=== PATIENT | male | born 1985 | race Caucasian/White ===

== ENCOUNTER 2020-09-27 03:31 | Emergency (ER) | payer OTHER ==
[2020-09-27] MEDS ORDERED: Sodium Chloride 0.9% 1,000 ML IV ONE (03:58)
[2020-09-27] MEDS ORDERED: Ondansetron 4 MG/2 ML SDV IV ONE (03:58)
[2020-09-27] MEDS ORDERED: diphenhydrAMINE 50 MG/ML SDV IVPUSH ONE (03:58)
--- NOTE | 2020-09-27 04:10 | EDM.PDOC ---
ED HPI GENERAL MEDICAL PROBLEM - General Chief Complaint: General Stated Complaint: FEELING FAINT, NAUSEA Time Seen by Provider: 09/27/20 03:45 Source of Information: Reports: Patient, RN, RN Notes Reviewed History Limitations: Reports: No Limitations - History of Present Illness INITIAL COMMENTS - FREE TEXT/NARRATIVE: Pt is a 35 year old male who presents to ER with c/o feeling faint/dizzy and nauseated. 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 He states he began feeling a tightness in the head and neck. Upon arrival to the ER, pt c/o headache, dizziness, and nausea. Patient denies any recent illness, denies past medical history. Denies vomiting or diarrhea, fever or chills, chest pains or SOB. Onset: Today, Sudden - Related Data Allergies Allergy/AdvReac Type Severity Reaction Status Date / Time No Known Allergies Allergy Verified 09/27/20 03:55 Home Meds: Home Meds . [No Known Home Meds] 10/31/13 [History] Past Medical History - Past Health History Medical/Surgical History: Denies Medical/Surgical History Social & Family History - Family History Family Medical History: No Pertinent Family History - Tobacco Use Tobacco Use Status *Q: Never Tobacco User Second Hand Smoke Exposure: No - Caffeine Use Caffeine Use: Reports: Energy Drinks - Recreational Drug Use Recreational Drug Use: No - Living Situation & Occupation Occupation: Employed ED ROS GENERAL - Review of Systems Review Of Systems: Comprehensive ROS is negative, except as noted in HPI. ED EXAM, GENERAL - Physical Exam Exam: See Below Exam Limited By: No Limitations General Appearance: Alert, WD/WN, Anxious, Mild Distress Eye Exam: Bilateral Eye: EOMI, Normal Inspection Ears: Normal External Exam, Hearing Grossly Normal Nose: Normal Inspection Throat/Mouth: Normal Inspection, Normal Voice, No Airway Compromise Head: Atraumatic, Normocephalic Neck: Normal Inspection, Supple, Non-Tender, Full Range of Motion, Other (No Nuchal Rigidity) Respiratory/Chest: No Respiratory Distress, Lungs Clear, Normal Breath Sounds, No Accessory Muscle Use, Chest Non-Tender Cardiovascular: Normal Peripheral Pulses, Regular Rate, Rhythm, No Edema, No Gallop, No JVD, No Murmur, No Rub Peripheral Pulses: 2+: Radial (L), Radial (R) GI/Abdominal: Normal Bowel Sounds, Soft, Non-Tender (Male) Exam: Deferred Rectal (Males) Exam: Deferred Back Exam: Normal Inspection, Full Range of Motion, NT Extremities: Normal Inspection, Normal Range of Motion, Non-Tender, Normal Capillary Refill, No Pedal Edema Neurological: Alert, Oriented, CN II-XII Intact, Normal Cognition, Normal Gait, Normal Reflexes, No Motor/Sensory Deficits Psychiatric: Normal Affect, Normal Mood, Anxious Skin Exam: Warm, Dry, Intact, Normal Color, No Rash, Other (ears red and warm) Lymphatic: No Adenopathy #1 Interpretation EKG Date: 09/27/20 Time: 04:04 Rhythm: NSR Rate (Beats/Min): 84 [place]: Normal P-Wave: Present QRS: Normal ST-T: Normal QT: Normal Comparison: NA - No Prior EKG Course - Vital Signs Last Recorded V/S: Last Vital Signs Temp 98.7 F 09/27/20 03:38 Pulse 97 09/27/20 03:38 Resp 19 09/27/20 03:38 BP 142/94 H 09/27/20 03:38 Pulse Ox 99 09/27/20 03:38 - Orders/Labs/Meds Orders: Active Orders 24 hr Category Date Time Status EKG Documentation Completion [RC] STAT Care 09/27/20 03:56 Active Labs: Laboratory Tests 09/27/20 09/27/20 09/27/20 Range/Units 04:00 04:00 04:00 WBC 13.6 H (5.0-10.0) 10^3/uL RBC 5.07 (4.6-6.2) 10^6/uL Hgb 15.1 (14.0-18.0) g/dL Hct 44.9 (40.0-54.0) % MCV 88.6 (80-100) fL MCH 29.8 (27.0-34.0) pg MCHC 33.6 (33.0-35.0) g/dL Plt Count 269 (150-450) 10^3/uL Neut % (Auto) 79.6 H (42.2-75.2) % Lymph % (Auto) 13.0 L (20.5-50.1) % [place] % (Auto) 5.7 (2-8) % Eos % (Auto) 1.0 (1.0-3.0) % Baso % (Auto) 0.7 (0.0-1.0) % Sodium 140 (136-145) mmol/L Potassium 3.2 L (3.5-5.1) mmol/L Chloride 100 (98-107) mmol/L Carbon Dioxide 28 (21-32) mmol/L Anion Gap 15.2 H (7-13) mEq/L BUN 12 (7-18) mg/dL Creatinine 1.10 (0.70-1.30) mg/dL Est Cr Clr Drug Dosing 107.95 mL/min Estimated GFR (MDRD) > 60 BUN/Creatinine Ratio 10.9 (No establ ref range) Glucose 109 H (70-99) mg/dL Calcium 8.9 (8.5-10.1) mg/dL Magnesium 2.2 (1.8-2.4) mg/dL Total Bilirubin 0.5 (0.2-1.0) mg/dL AST 26 (15-37) U/L ALT 74 H (16-63) U/L Alkaline Phosphatase 59 (46-116) U/L Troponin I < 0.017 (0.000-0.056) ng/mL Total Protein 8.2 (6.4-8.2) g/dL Albumin 4.5 (3.4-5.0) g/dL Globulin 3.7 Albumin/Globulin Ratio 1.2 Urine Color Yellow (YELLOW) Urine Appearance Clear (CLEAR) Urine pH 6.5 (5.0-9.0) Ur Specific [place] 1.010 (1.005-1.030) Urine Protein Negative (NEGATIVE) Urine Glucose (UA) Negative (NEGATIVE) Urine Ketones Negative (NEGATIVE) Urine Occult Blood Negative (NEGATIVE) Urine Nitrite Negative (NEGATIVE) Urine Bilirubin Negative (NEGATIVE) Urine Urobilinogen 0.2 (0.2-1.0) mg/dL Ur Leukocyte Esterase Negative (NEGATIVE) Meds: Medications Discontinued Medications Generic Name Dose Route Start Last Admin Trade Name Freq PRN Reason Stop Dose Admin Acetaminophen 650 mg 09/27/20 04:59 09/27/20 05:07 Acetaminophen 325 Mg Tab PO 09/27/20 05:00 650 mg NOW ONE Administration Diphenhydramine HCl 25 mg 09/27/20 03:58 09/27/20 04:13 Diphenhydramine 50 Mg/Ml Sdv IVPUSH 09/27/20 03:59 25 mg ONETIME ONE Administration Sodium Chloride 1,000 mls @ 999 mls/hr 09/27/20 03:58 09/27/20 04:14 Normal Saline IV 09/27/20 04:58 999 mls/hr .BOLUS ONE Administration Ondansetron HCl 4 mg 09/27/20 03:58 09/27/20 04:11 Ondansetron 4 Mg/2 Ml Sdv IV 09/27/20 03:59 4 mg ONETIME ONE Administration Departure - Departure Time of Disposition: 05:29 Disposition: Home, Self-Care 01 Condition: Good Clinical Impression: Dizziness Headache Qualifiers: Headache type: unspecified Headache chronicity pattern: unspecified pattern Intractability: not intractable Qualified Code(s): R51.9 - Headache, unspecified - Discharge Information *PRESCRIPTION DRUG MONITORING PROGRAM REVIEWED*: No *COPY OF PRESCRIPTION DRUG MONITORING REPORT IN PATIENT JARED: No Instructions: Dizziness, [id number], General Headache Without Cause, [id number] Forms: ED Department Discharge Additional Instructions: Monitor Blood pressure May use Tylenol and/or Ibuprofen as directed for pain/fever Follow up with your primary care facility next week Rest Drink plenty of fluids Return to the ER with any worsening of problems Sepsis Event Note (ED) - Evaluation Sepsis Screening Result: No Definite Risk - Focused Exam Vital Signs: Vital Signs Temp Pulse Resp BP Pulse Ox 09/27/20 03:38 98.7 F 97 19 142/94 H 99 - My Orders Last 24 Hours: My Active Orders 09/27/20 03:56 EKG Documentation Completion [RC] STAT - Assessment/Plan Last 24 Hours: My Active Orders 09/27/20 03:56 EKG Documentation Completion [RC] STAT
[2020-09-27 04:29] LABS: ANION GAP 15.2 mEq/L (7-13); CHLORIDE,CL 100 mmol/L (98-107); SODIUM,NA 140 mmol/L (136-145)
[2020-09-27] MEDS ORDERED: Acetaminophen 325 MG Tab PO ONE (04:59)
--- NOTE | 2020-09-27 05:18 | CR ---
PROCEDURE INFORMATION: Exam: XR Chest Exam date and time: 09/27/2020 4:51 AM Age: 35 years old Clinical indication: Other: Chest pain TECHNIQUE: Imaging protocol: XR of the chest. Views: 1 view. COMPARISON: No relevant prior studies available. FINDINGS: Lungs: The lungs are adequately inflated. No consolidation. Pleural spaces: No pleural effusion or pneumothorax. Heart/Mediastinum: Cardiac silhouette size is normal. Vasculature: Left hilar opacity could represent overlapping vascular structures. Bones/joints: No acute osseous abnormalities. IMPRESSION: Left hilar opacity likely represents overlying vascular structures. Consider repeat formal PA/LAT radiographs for confirmation. Otherwise, no acute findings.
== END 2020-09-27 05:42 | disposition home or self-care (01) ==
LOC: DL.ED 03:31
DX: R42 Dizziness and giddiness (principal); R51.9 Headache, unspecified
CPT/HCPCS: 36415; 71045; 80053; 81003; 83735; 84484; 85025; 93005; 93010; 96374; 96375; 99284; 99284-25; A9270-GY; J1200; J2405; J7030

== ENCOUNTER 2020-09-30 02:06 | Emergency (ER) | payer OTHER ==
[2020-09-30] MEDS ORDERED: Meclizine 12.5 MG Tab PO ONE (02:39)
[2020-09-30 03:13] LABS: ANION GAP 14.6 mEq/L (7-13); CHLORIDE,CL 101 mmol/L (98-107); SODIUM,NA 138 mmol/L (136-145)
--- NOTE | 2020-09-30 04:06 | EDM.PDOC ---
ED HPI GENERAL MEDICAL PROBLEM - General Chief Complaint: General Stated Complaint: DIZZY, NAUSEA Time Seen by Provider: 09/30/20 02:20 Source of Information: Reports: Patient History Limitations: Reports: No Limitations - History of Present Illness INITIAL COMMENTS - FREE TEXT/NARRATIVE: ED ambulatory. C/o intermittent feeling of dizziness, Notices more with rapid position change or movement of head, Describes feeling that head is congested. Was seen durning weekend with similar sx. Nauseated at that time. Tolerating fluids now. No injury, No fever or chills. no diarrhea. No cough. In area for [employer]. Reports working " night" shift, normal routine is daytime hours. - Related Data Allergies Allergy/AdvReac Type Severity Reaction Status Date / Time No Known Allergies Allergy Verified 09/30/20 02:15 Home Meds: Home Meds . [No Known Home Meds] 10/31/13 [History] Past Medical History - Past Health History Medical/Surgical History: Denies Medical/Surgical History Social & Family History - Family History Family Medical History: No Pertinent Family History - Tobacco Use Tobacco Use Status *Q: Former Tobacco User Used Tobacco, but Quit: Yes Month/Year Tobacco Last Used: 2010 - Caffeine Use Caffeine Use: Reports: Energy Drinks - Recreational Drug Use Recreational Drug Use: No - Living Situation & Occupation Occupation: Employed ED ROS GENERAL - Review of Systems Review Of Systems: Comprehensive ROS is negative, except as noted in HPI. ED EXAM, GENERAL - Physical Exam Exam: See Below Exam Limited By: No Limitations General Appearance: Alert, No Apparent Distress Eye Exam: Bilateral Eye: EOMI, PERRL Ears: Normal External Exam, Hearing Grossly Normal Nose: Normal Inspection Throat/Mouth: Normal Inspection Head: Atraumatic, Normocephalic Neck: Normal Inspection Respiratory/Chest: No Respiratory Distress Cardiovascular: Normal Peripheral Pulses, Regular Rate, Rhythm GI/Abdominal: Normal Bowel Sounds, Soft, Non-Tender Extremities: Normal Inspection, Normal Range of Motion Neurological: Alert, Oriented, Normal Cognition, Normal Gait, Normal Reflexes, No Motor/Sensory Deficits Psychiatric: Normal Affect, Normal Mood Skin Exam: Warm, Dry, Intact Course - Vital Signs Last Recorded V/S: Last Vital Signs Temp 98.2 F 09/30/20 02:16 Pulse 84 09/30/20 02:16 Resp 18 09/30/20 02:16 BP 169/90 H 09/30/20 02:16 Pulse Ox 100 09/30/20 02:16 - Orders/Labs/Meds Labs: Laboratory Tests 09/30/20 09/30/20 09/30/20 Range/Units 02:45 02:45 02:45 WBC 12.5 H (5.0-10.0) 10^3/uL RBC 4.90 (4.6-6.2) 10^6/uL Hgb 14.4 (14.0-18.0) g/dL Hct 43.5 (40.0-54.0) % MCV 88.8 (80-100) fL MCH 29.4 (27.0-34.0) pg MCHC 33.1 (33.0-35.0) g/dL Plt Count 254 (150-450) 10^3/uL Neut % (Auto) 76.5 H (42.2-75.2) % Lymph % (Auto) 14.4 L (20.5-50.1) % [place] % (Auto) 5.4 (2-8) % Eos % (Auto) 2.9 (1.0-3.0) % Baso % (Auto) 0.8 (0.0-1.0) % Sodium 138 (136-145) mmol/L Potassium 3.6 (3.5-5.1) mmol/L Chloride 101 (98-107) mmol/L Carbon Dioxide 26 (21-32) mmol/L Anion Gap 14.6 H (7-13) mEq/L BUN 10 (7-18) mg/dL Creatinine 1.14 (0.70-1.30) mg/dL Est Cr Clr Drug Dosing 104.16 mL/min Estimated GFR (MDRD) > 60 BUN/Creatinine Ratio 8.8 (No establ ref range) Glucose 105 H (70-99) mg/dL Lactic Acid 1.0 (0.4-2.0) mmol/L Calcium 8.3 L (8.5-10.1) mg/dL Total Bilirubin 0.4 (0.2-1.0) mg/dL AST 21 (15-37) U/L ALT 65 H (16-63) U/L Alkaline Phosphatase 58 (46-116) U/L Total Protein 7.7 (6.4-8.2) g/dL Albumin 4.2 (3.4-5.0) g/dL Globulin 3.5 Albumin/Globulin Ratio 1.2 Amylase 57 (25-115) U/L Lipase 67 L (73-393) U/L SARS-CoV-2 RNA (DAVE) (NEGATIVE) 09/30/20 Range/Units 02:47 WBC (5.0-10.0) 10^3/uL RBC (4.6-6.2) 10^6/uL Hgb (14.0-18.0) g/dL Hct (40.0-54.0) % MCV (80-100) fL MCH (27.0-34.0) pg MCHC (33.0-35.0) g/dL Plt Count (150-450) 10^3/uL Neut % (Auto) (42.2-75.2) % Lymph % (Auto) (20.5-50.1) % [place] % (Auto) (2-8) % Eos % (Auto) (1.0-3.0) % Baso % (Auto) (0.0-1.0) % Sodium (136-145) mmol/L Potassium (3.5-5.1) mmol/L Chloride (98-107) mmol/L Carbon Dioxide (21-32) mmol/L Anion Gap (7-13) mEq/L BUN (7-18) mg/dL Creatinine (0.70-1.30) mg/dL Est Cr Clr Drug Dosing mL/min Estimated GFR (MDRD) BUN/Creatinine Ratio (No establ ref range) Glucose (70-99) mg/dL Lactic Acid (0.4-2.0) mmol/L Calcium (8.5-10.1) mg/dL Total Bilirubin (0.2-1.0) mg/dL AST (15-37) U/L ALT (16-63) U/L Alkaline Phosphatase (46-116) U/L Total Protein (6.4-8.2) g/dL Albumin (3.4-5.0) g/dL Globulin Albumin/Globulin Ratio Amylase (25-115) U/L Lipase (73-393) U/L SARS-CoV-2 RNA (DAVE) Negative (NEGATIVE) Meds: Medications Discontinued Medications Generic Name Dose Route Start Last Admin Trade Name Freq PRN Reason Stop Dose Admin Meclizine HCl 25 mg 09/30/20 02:39 09/30/20 02:53 Meclizine 12.5 Mg Tab PO 09/30/20 02:40 25 mg ONETIME ONE Administration Departure - Departure Time of Disposition: 04:01 Disposition: Home, Self-Care 01 Condition: Good Clinical Impression: Dizziness - Discharge Information *PRESCRIPTION DRUG MONITORING PROGRAM REVIEWED*: No *COPY OF PRESCRIPTION DRUG MONITORING REPORT IN PATIENT JARED: No Instructions: Vertigo, [id number] Forms: ED Department Discharge Additional Instructions: activity as tolerated change position slowly Meclizine 25mg every 8 hours as needed for diziness home blood pressure monitor clinic follow up next week Sepsis Event Note (ED) - Evaluation Sepsis Screening Result: No Definite Risk - Focused Exam Vital Signs: Vital Signs Temp Pulse Resp BP Pulse Ox 09/30/20 02:16 98.2 F 84 18 169/90 H 100
== END 2020-09-30 04:10 | disposition home or self-care (01) ==
LOC: DL.ED 02:06
DX: R42 Dizziness and giddiness (principal); Z20.822 Contact with and (suspected) exposure to COVID-19; Z87.891 Personal history of nicotine dependence
CPT/HCPCS: 36415; 80053; 82150; 83605; 83690; 85025; 99283; 99284; A9270-GY; U0002